=== PATIENT | female | born 1995 | race Caucasian/White ===

== ENCOUNTER 2018-10-22 19:25 | Emergency (ER) | payer OTHER ==
[~2018-10-22] VITALS: Ht 152.4 cm; Wt 92.1 kg
[2018-10-22 19:34] VITALS: Ht 152.4 cm; Wt 92.1 kg
[2018-10-22 22:15] VITALS: BP 127/56
== END 2018-10-22 22:15 | disposition home or self-care (01) ==
LOC: ED 19:25
DX: N76.0 Acute vaginitis (principal)
CPT/HCPCS: 82962; 87491; 87591

== ENCOUNTER 2019-03-22 17:40 | Emergency (ER) | payer OTHER ==
[~2019-03-22] VITALS: Ht 152.4 cm; Wt 87.5 kg
[2019-03-22 17:56] VITALS: BP 98/51; Ht 152.4 cm; Wt 87.5 kg
== END 2019-03-22 20:56 | disposition left against medical advice (07) ==
LOC: ED 17:40
DX: Z53.21 Procedure and treatment not carried out due to patient leaving prior to being seen by health care provider (principal)